=== PATIENT | female | born 1955 | race Caucasian/White ===

== ENCOUNTER 2018-12-12 09:04 | Day surgery (SDC) | payer MEDICAID, SELFPAY ==
[2018-12-07 14:37] VITALS: BMI 34.0
[2018-12-12 09:23] VITALS: BP 138/78; PULSE 60; RESP 16; TEMP 36.4; O2SAT 97; BMI 45.0
--- NOTE | 2018-12-12 10:03 | PCM.HP.BLA ---
History and Physical Date of Admission: 12/12/18 [facility] [address] [place], [place] [address] OFFICE VISIT Date of Service: 12/07/18 MR#: [id number] Acct: [id number] Name: THOM RAMÍREZ Rep #: [id number] : 1955 Provider: Cain Rush MD Age/Sex: 63/F Location: [facility] Status: Signed Intake Vital Signs 12/07/18 Height 5 ft 10 in 12/07/18 Weight: 237 lb 12/07/18 Body Mass Index (BMI) 34.0 12/07/18 Blood Pressure 130/80 H 12/07/18 Blood Pressure Location Rt brachial 12/07/18 Blood Pressure Position Sitting 12/07/18 Respiratory Rate 18 12/07/18 Pulse Rate 70 12/07/18 Pulse Source Monitor 12/07/18 Temperature 98.2 F 12/07/18 Temperature Source Oral 12/07/18 Pulse Ox 96 12/07/18 Oxygen Delivery Method room air Intake Visit Reasons: Ventral Hernias/Discuss C-Scope 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: No Is patient in pain?: No Allergies tetanus and diphtheria toxoids Allergy (Intermediate, Verified 12/07/18 14:39) arm swelling Inhaled Anesthetics (Halogen Based) Allergy (Unknown, Verified 12/07/18 14:40) unknown-many years ago Medications NK 12/07/18 [History Confirmed 12/07/18] Is last menstrual period known: No Post menopausal: Yes Patient : No PFSH Medical History Abdominal pain (Acute) Asthma (Acute) Ventral hernia (Acute) Surgical History History of laparoscopic cholecystectomy (Acute) History of total abdominal hysterectomy (Acute) Family History Mother Cancer Lung Heart disease Thyroid disorder Father Diabetes Heart disease Social History Smoking Status: Never smoker alcohol intake: never substance use type: does not use HPI HPI HPI: THOM RAMÍREZ, is a 63 F who presents to the office today for HPI HPI Surgical H&P: Yes HPI: THOM RAMÍREZ, is a 63 F who presents to the office today for evaluation of ventral hernias as well as the need for a colonoscopy. It has been over 10 years since her last colonoscopy and she reports that she had a polyp that they removed but no recommendations for earlier colonoscopies were made. She has been having discomfort in her abdomen mostly in the midline a recent CAT scan completed it [facility] in [place] make notes of ventral hernias in the midline. The discomfort is primarily with movement she has had no nausea or vomiting or incarcerating symptoms. She has frequent CT scans of her abdomen secondary to her having endometrial cancer. And at the present time her disease seems to be in remission. However in reviewing her oncology notes they make note that the CAT scans show that the hernias themselves have increased in size. ROS General General: No weight change, appetite, fatigue, colon cancer, breast cancer or weakness HEENT HEENT: No difficulty swallowing, eye injury, eye surgery, swollen glands or hoarseness Endo Endocrine: No thyroid disease, diabetes mellitus, thyroid cancer, Hair loss, heat intolerance or cold intolerance Skin Skin: No rash or changing moles Breast Breast: No left breast lump, right breast lump, nipple discharge, breast pain, abnormal mammogram, abnormal US or breast enlargement Musc Musculoskeletal: No back problems, arthritis, rheumatoid arthritis, gout or joint pain Cardio Cardiovascular: Yes murmur; no pacemaker, heart disease, atrial fibrillation, high blood pressure, heart attack, heart stent, palpitations, shortness of breat with exertion or chest pain Psych Psychiatric: No depression, anxiety or hearing voices Resp Respiratory: No shortness of breath, No sleep apnea, No cough, No COPD, Yes asthma, No emphysema, No wheezing Gastro Gastrointestinal: Yes abdominal pain, No nausea or vomiting, No diarrhea, No constipation, No blood in stool, No acid reflux, No hemorrhoids, No ulcers, No gallbladder problem, No black,tarry stools Freddie Hematologic: No blood thinners, No blood disorders, No bleeding, No anemia, No blood clots Neuro Neurologic: No system reviewed and no additional complaints, except as docu, No as per HPI, No abnormal walking, No abnormal hearing, No abnormal movements, No abnormal speech, No behavioral changes, No burning sensations, No confusion, No seizure-like activity, No unsteadiness, No dizziness, No localized weakness, No frequent falls, No headache(s), No lack of coordination, No loss of vision, No memory loss, No numbness, No other visual disturbances, No radiating pain, No restless legs, No sensory deficit, No fainting, No tingling, No tremor(s), No weakness, No other Exam Const General: no acute distress, well developed, well hydrated Orientation: oriented to person, oriented to place, oriented to time [facility] Head: normocephalic, atraumatic Ears: external ears normal Mouth: moist mucous membranes Eyes Sclera: sclerae normal Pupils: normal by confrontation Neck Neck: no lymphadenopathy noted Neck mass: No Thyroid: thyroid normal, symmetrical Chest Chest palpation & inspection: normal inspection of the chest Breast Palpation: No nipple discharge Resp Effort & Inspection: normal respiratory effort Auscultation: clear to auscultation bilaterally Percussion: percussion normal Cardio Rate: regular rate Rhythm: regular rhythm Heart Sounds: murmur GI Palpation: soft, no hepatosplenomegaly, no masses, tender Rectal Exam: other Other: A Hernia in the midline is palpable On exam. Rectal exam deferred. Extrem General: normal to inspection, no clubbing, cyanosis or edema Assessment & Plan Problems 1. Incisional hernia, without obstruction or gangrene K43.2; K43.91 2. Personal history of colonic polyps Z86.010 Plan I have discussed the above with the patient. I have offered the patient colonoscopy for evaluation. I have explained the risks/benefits of the procedure and described the procedure. I have discussed the risks with the patient, including but not limited to: infection, bleeding, perforation of the GI tract requiring emergency surgery, inability to complete the procedure, injury to any internal organs, complications of anesthesia, etc. - the patient understands and agrees to proceed. I have answered all the patient's questions to the patient's satisfaction and the patient has no further questions. The patient has been given instructions for the colon cleansing preparation. I will see her back once the colonoscopy is completed and we will re-discussed the possibility of performing an incisional hernia repair on her. Orders Orders: Colonoscopy 12/07/18 Coding Level of Care Code Off vis,new,level 3 Diagnoses Incisional hernia, without obstruction or gangrene K43.2; K43.91 ??Obstruction and gangrene presence: without obstruction or gangrene Personal history of colonic polyps Z86.010 12/08/18 1233 <Electronically signed by Cain Rush MD> Date Cain Rush MD Cosigner Signature: Date (if applicable) CC: Shae Paula, DO ~ I have re-examined the patient. There are no clinical changes since date of exam.
[2018-12-12 10:32] VITALS: BP 130/87; BP 138/78; PULSE 66; RESP 16; TEMP 36.7; O2SAT 97
--- NOTE | 2018-12-12 10:34 | OP.ENDO_ITS ---
Patient Name: Adeola Farmer Procedure Date: 12/12/2018 10:07 AM Date of : 1955 Age: 63 Procedure: Colonoscopy Indications: High risk colon cancer surveillance: Personal history of colonic polyps Providers: Cain Rush MD Referring MD: Cain Rush MD Medicines: See the Anesthesia note for documentation of the administered medications Patient Profile: This is a 63 year old female. Refer to note in patient chart for documentation of history and physical. Last Colonoscopy: more than 10 years ago. Complications: No immediate complications. Procedure: Pre-Anesthesia Assessment: - Prior to the procedure, a History and Physical was performed, and patient medications and allergies were reviewed. The patient's tolerance of previous anesthesia was also reviewed. The risks and benefits of the procedure and the sedation options and risks were discussed with the patient. All questions were answered, and informed consent was obtained. Prior Anticoagulants: The patient has taken no previous anticoagulant or antiplatelet agents. ASA Grade Assessment: II - A patient with mild systemic disease. After reviewing the risks and benefits, the patient was deemed in satisfactory condition to undergo the procedure. After I obtained informed consent, the scope was passed under direct vision. Throughout the procedure, the patient's blood pressure, pulse, and oxygen saturations were monitored continuously. The colonoscope was introduced through the anus and advanced to the cecum, identified by appendiceal orifice and ileocecal valve. The colonoscopy was performed without difficulty. The patient tolerated the procedure well. The quality of the bowel preparation was good. Scope In: 10:14:12 AM Scope Withdrawal Time 0 hours 6 minutes 8 seconds Scope Out: 10:28:12 AM Total Procedure Duration Time 0 hours 14 minutes 0 seconds Findings: A few small-mouthed diverticula were found in the sigmoid colon. No biopsies or other specimens were collected for this exam. Non-bleeding internal hemorrhoids were found during retroflexion. The hemorrhoids were mild and small. No biopsies or other specimens were collected for this exam. The exam was otherwise without abnormality. Impression: - Diverticulosis in the sigmoid colon. No specimens collected. - Non-bleeding internal hemorrhoids. No specimens collected. - The examination was otherwise normal. Recommendation: - Discharge patient to home. - Resume previous diet. - Continue present medications. - Repeat colonoscopy in 10 years for screening purposes. - Return to my office in 1 week. Procedure Code(s): --- Professional --- 18737, Colonoscopy, flexible; diagnostic, including collection of specimen(s) by brushing or washing, when performed (separate procedure) Diagnosis Code(s): --- Professional --- Z86.010, Personal history of colonic polyps K64.8, Other hemorrhoids K57.30, Diverticulosis of large intestine without perforation or abscess without bleeding CPT copyright 2017 [employer]. All rights reserved. The codes documented in this report are preliminary and upon rural sociologist review may be revised to meet current compliance requirements. MD Cain Mesa MD 12/12/2018 10:34:23 AM This report has been signed electronically. Number of Addenda: 0 Note Initiated On: 12/12/2018 10:07 AM
[2018-12-12 10:35] VITALS: BP 110/79; BP 138/78; PULSE 66; RESP 16; O2SAT 95
[2018-12-12 10:40] VITALS: BP 119/108; BP 138/78; PULSE 62; RESP 16; O2SAT 95
[2018-12-12 10:45] VITALS: BP 124/79; BP 138/78; PULSE 80; RESP 16; TEMP 36.7; O2SAT 97
[2018-12-12 10:52] VITALS: BP 138/78
== END 2018-12-12 11:31 | disposition home or self-care (01) ==
LOC: EN 09:05 → AC 09:16
PROVIDERS: Referring Provider Surgery; Visit Provider Surgery
PROC: 0DJD8ZZ Inspection of Lower Intestinal Tract, Via Natural or Artificial Opening Endoscopic (ICD-10-PCS; CPT 45378; principal; 2018-12-12 09:55)
DX: Z86.010 Personal history of colon polyps (principal); K57.30 Diverticulosis of large intestine without perforation or abscess without bleeding; K64.8 Other hemorrhoids; K43.2 Incisional hernia without obstruction or gangrene; J45.909 Unspecified asthma, uncomplicated; K76.0 Fatty (change of) liver, not elsewhere classified; E06.9 Thyroiditis, unspecified; N28.1 Cyst of kidney, acquired; Z78.0 Asymptomatic menopausal state; Z85.42 Personal history of malignant neoplasm of other parts of uterus; Z92.21 Personal history of antineoplastic chemotherapy; Z92.3 Personal history of irradiation; Z90.49 Acquired absence of other specified parts of digestive tract
CPT/HCPCS: 45378; J7120; A4216; J1610

== ENCOUNTER 2019-01-12 05:55 | Day surgery (SDC) | payer MEDICAID, SELFPAY ==
--- NOTE | 2018-12-08 12:31 | HP_ITS ---
Intake Vital Signs 12/07/18 Height 5 ft 10 in 12/07/18 Weight: 237 lb 12/07/18 Body Mass Index (BMI) 34.0 12/07/18 Blood Pressure 130/80 H 12/07/18 Blood Pressure Location Rt brachial 12/07/18 Blood Pressure Position Sitting 12/07/18 Respiratory Rate 18 12/07/18 Pulse Rate 70 12/07/18 Pulse Source Monitor 12/07/18 Temperature 98.2 F 12/07/18 Temperature Source Oral 12/07/18 Pulse Ox 96 12/07/18 Oxygen Delivery Method room air Intake Visit Reasons: Ventral Hernias/Discuss C-Scope Triage Clinician Required: No Is patient in pain?: No Allergies tetanus and diphtheria toxoids Allergy (Intermediate, Verified 12/07/18 14:39) arm swelling Inhaled Anesthetics (Halogen Based) Allergy (Unknown, Verified 12/07/18 14:40) unknown-many years ago Medications NK 12/07/18 [History Confirmed 12/07/18] Is last menstrual period known: No Post menopausal: Yes Patient : No PFSH Medical History Abdominal pain (Acute) Asthma (Acute) Ventral hernia (Acute) Surgical History History of laparoscopic cholecystectomy (Acute) History of total abdominal hysterectomy (Acute) Family History Mother Cancer Lung Heart disease Thyroid disorder Father Diabetes Heart disease Social History Smoking Status: Never smoker alcohol intake: never substance use type: does not use HPI HPI HPI: THOM RAMÍREZ, is a 63 F who presents to the office today for HPI HPI Surgical H&P: Yes HPI: THOM RAMÍREZ, is a 63 F who presents to the office today for evaluation of ventral hernias as well as the need for a colonoscopy. It has been over 10 years since her last colonoscopy and she reports that she had a polyp that they removed but no recommendations for earlier colonoscopies were made. She has been having discomfort in her abdomen mostly in the midline a recent CAT scan completed it [facility] in [place] make notes of ventral hernias in the midline. The discomfort is primarily with movement she has had no nausea or vomiting or incarcerating symptoms. She has frequent CT scans of her abdomen secondary to her having endometrial cancer. And at the present time her disease seems to be in remission. However in reviewing her oncology notes they make note that the CAT scans show that the hernias themselves have increased in size. ROS General General: No weight change, appetite, fatigue, colon cancer, breast cancer or weakness HEENT HEENT: No difficulty swallowing, eye injury, eye surgery, swollen glands or hoarseness Endo Endocrine: No thyroid disease, diabetes mellitus, thyroid cancer, Hair loss, heat intolerance or cold intolerance Skin Skin: No rash or changing moles Breast Breast: No left breast lump, right breast lump, nipple discharge, breast pain, abnormal mammogram, abnormal US or breast enlargement Musc Musculoskeletal: No back problems, arthritis, rheumatoid arthritis, gout or joint pain Cardio Cardiovascular: Yes murmur; no pacemaker, heart disease, atrial fibrillation, high blood pressure, heart attack, heart stent, palpitations, shortness of breat with exertion or chest pain Psych Psychiatric: No depression, anxiety or hearing voices Resp Respiratory: No shortness of breath, No sleep apnea, No cough, No COPD, Yes asthma, No emphysema, No wheezing Gastro Gastrointestinal: Yes abdominal pain, No nausea or vomiting, No diarrhea, No constipation, No blood in stool, No acid reflux, No hemorrhoids, No ulcers, No gallbladder problem, No black,tarry stools Freddie Hematologic: No blood thinners, No blood disorders, No bleeding, No anemia, No blood clots Neuro Neurologic: No system reviewed and no additional complaints, except as docu, No as per HPI, No abnormal walking, No abnormal hearing, No abnormal movements, No abnormal speech, No behavioral changes, No burning sensations, No confusion, No seizure-like activity, No unsteadiness, No dizziness, No localized weakness, No frequent falls, No headache(s), No lack of coordination, No loss of vision, No memory loss, No numbness, No other visual disturbances, No radiating pain, No restless legs, No sensory deficit, No fainting, No tingling, No tremor(s), No weakness, No other Exam Const General: no acute distress, well developed, well hydrated Orientation: oriented to person, oriented to place, oriented to time [facility] Head: normocephalic, atraumatic Ears: external ears normal Mouth: moist mucous membranes Eyes Sclera: sclerae normal Pupils: normal by confrontation Neck Neck: no lymphadenopathy noted Neck mass: No Thyroid: thyroid normal, symmetrical Chest Chest palpation & inspection: normal inspection of the chest Breast Palpation: No nipple discharge Resp Effort & Inspection: normal respiratory effort Auscultation: clear to auscultation bilaterally Percussion: percussion normal Cardio Rate: regular rate Rhythm: regular rhythm Heart Sounds: murmur GI Palpation: soft, no hepatosplenomegaly, no masses, tender Rectal Exam: other Other: A Hernia in the midline is palpable On exam. Rectal exam deferred. Extrem General: normal to inspection, no clubbing, cyanosis or edema Assessment & Plan Problems 1. Incisional hernia, without obstruction or gangrene K43.2; K43.91 2. Personal history of colonic polyps Z86.010 Plan I have discussed the above with the patient. I have offered the patient colonoscopy for evaluation. I have explained the risks/benefits of the procedure and described the procedure. I have discussed the risks with the patient, including but not limited to: infection, bleeding, perforation of the GI tract requiring emergency surgery, inability to complete the procedure, injury to any internal organs, complications of anesthesia, etc. - the patient understands and agrees to proceed. I have answered all the patient's questions to the patient's satisfaction and the patient has no further questions. The patient has been given instructions for the colon cleansing preparation. I will see her back once the colonoscopy is completed and we will re-discussed the possibility of performing an incisional hernia repair on her. Orders Orders: Colonoscopy 12/07/18 Coding Level of Care Code Off vis,new,level 3 Diagnoses Incisional hernia, without obstruction or gangrene K43.2; K43.91 ??Obstruction and gangrene presence: without obstruction or gangrene Personal history of colonic polyps Z86.010 12/08/18 1233 <Electronically signed by Cain flores MD> Date _ Cain Rush MD
[2018-12-22 13:23] VITALS: BMI 45.0
--- NOTE | 2019-01-10 14:43 | EKG12_ITS ---
Test Reason : PRE OP Blood Pressure : / mmHG Vent. Rate : 070 BPM Atrial Rate : 070 BPM P-R Int : 146 ms QRS Dur : 080 ms QT Int : 418 ms P-R-T Axes : -12 023 026 degrees QTc Int : 451 ms Normal sinus rhythm Low voltage QRS Borderline ECG Confirmed by LUIS ANTONIO BUITRAGO, ZOHRA ([id number]), index editor VALDEZ SIERRA ([id number]) on 01/12/2019 11:58:29 AM Referred By: Cain Rush Confirmed By:ZOHRA SALMON MD
[2019-01-10 15:44] LABS: Thyroid Stim Hormone (TSH) 3.63 uIU/mL (0.358-3.74)
[2019-01-12] VITALS (14 sets, daily range): BP systolic 122–162; BP diastolic 56–88; PULSE 63–75; RESP 16–18; TEMP 36.3–36.8; O2SAT 86–96; BMI 45.8; BMI 48.2
--- NOTE | 2019-01-12 06:57 | PCM.HP.BLA ---
History and Physical Date of Admission: 01/12/19 [facility] Medical Records Department [address] [place] [address] History and Physical MR#: [id number] Acct: [id number] Name: THOM RAMÍREZ Rep #: [id number] : 1955 63 From: Cain Rush MD PCP: Shae Paula, Status: PRE SDC Location: SDC Intake Vital Signs 12/07/18 Height 5 ft 10 in 12/07/18 Weight: 237 lb 12/07/18 Body Mass Index (BMI) 34.0 12/07/18 Blood Pressure 130/80 H 12/07/18 Blood Pressure Location Rt brachial 12/07/18 Blood Pressure Position Sitting 12/07/18 Respiratory Rate 18 12/07/18 Pulse Rate 70 12/07/18 Pulse Source Monitor 12/07/18 Temperature 98.2 F 12/07/18 Temperature Source Oral 12/07/18 Pulse Ox 96 12/07/18 Oxygen Delivery Method room air Intake Visit Reasons: Ventral Hernias/Discuss 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 Is patient in pain?: No Allergies tetanus and diphtheria toxoids Allergy (Intermediate, Verified 12/07/18 14:39) arm swelling Inhaled Anesthetics (Halogen Based) Allergy (Unknown, Verified 12/07/18 14:40) unknown-many years ago Medications NK 12/07/18 [History Confirmed 12/07/18] Is last menstrual period known: No Post menopausal: Yes Patient : No PFSH Medical History Abdominal pain (Acute) Asthma (Acute) Ventral hernia (Acute) Surgical History History of laparoscopic cholecystectomy (Acute) History of total abdominal hysterectomy (Acute) Family History Mother Cancer Lung Heart disease Thyroid disorder Father Diabetes Heart disease Social History Smoking Status: Never smoker alcohol intake: never substance use type: does not use HPI HPI HPI: THOM RAMÍREZ is a 63 F who presents to the office today for HPI HPI Surgical H&P: Yes HPI: THOM RAMÍREZ is a 63 F who presents to the office today for evaluation of ventral hernias as well as the need for a colonoscopy. It has been over 10 years since her last colonoscopy and she reports that she had a polyp that they removed but no recommendations for earlier colonoscopies were made. She has been having discomfort in her abdomen mostly in the midline a recent CAT scan completed it [facility] in [place] make notes of ventral hernias in the midline. The discomfort is primarily with movement she has had no nausea or vomiting or incarcerating symptoms. She has frequent CT scans of her abdomen secondary to her having endometrial cancer. And at the present time her disease seems to be in remission. However in reviewing her oncology notes they make note that the CAT scans show that the hernias themselves have increased in size. ROS General General: No weight change, appetite, fatigue, colon cancer, breast cancer or weakness HEENT HEENT: No difficulty swallowing, eye injury, eye surgery, swollen glands or hoarseness Endo Endocrine: No thyroid disease, diabetes mellitus, thyroid cancer, Hair loss, heat intolerance or cold intolerance Skin Skin: No rash or changing moles Breast Breast: No left breast lump, right breast lump, nipple discharge, breast pain, abnormal mammogram, abnormal US or breast enlargement Musc Musculoskeletal: No back problems, arthritis, rheumatoid arthritis, gout or joint pain Cardio Cardiovascular: Yes murmur; no pacemaker, heart disease, atrial fibrillation, high blood pressure, heart attack, heart stent, palpitations, shortness of breat with exertion or chest pain Psych Psychiatric: No depression, anxiety or hearing voices Resp Respiratory: No shortness of breath, No sleep apnea, No cough, No COPD, Yes asthma, No emphysema, No wheezing Gastro Gastrointestinal: Yes abdominal pain, No nausea or vomiting, No diarrhea, No constipation, No blood in stool, No acid reflux, No hemorrhoids, No ulcers, No gallbladder problem, No black,tarry stools Freddie Hematologic: No blood thinners, No blood disorders, No bleeding, No anemia, No blood clots Neuro Neurologic: No system reviewed and no additional complaints, except as docu, No as per HPI, No abnormal walking, No abnormal hearing, No abnormal movements, No abnormal speech, No behavioral changes, No burning sensations, No confusion, No seizure-like activity, No unsteadiness, No dizziness, No localized weakness, No frequent falls, No headache(s), No lack of coordination, No loss of vision, No memory loss, No numbness, No other visual disturbances, No radiating pain, No restless legs, No sensory deficit, No fainting, No tingling, No tremor(s), No weakness, No other Exam Const General: no acute distress, well developed, well hydrated Orientation: oriented to person, oriented to place, oriented to time [facility] Head: normocephalic, atraumatic Ears: external ears normal Mouth: moist mucous membranes Eyes Sclera: sclerae normal Pupils: normal by confrontation Neck Neck: no lymphadenopathy noted Neck mass: No Thyroid: thyroid normal, symmetrical Chest Chest palpation & inspection: normal inspection of the chest Breast Palpation: No nipple discharge Resp Effort & Inspection: normal respiratory effort Auscultation: clear to auscultation bilaterally Percussion: percussion normal Cardio Rate: regular rate Rhythm: regular rhythm Heart Sounds: murmur GI Palpation: soft, no hepatosplenomegaly, no masses, tender Rectal Exam: other Other: A Hernia in the midline is palpable On exam. Rectal exam deferred. Extrem General: normal to inspection, no clubbing, cyanosis or edema Assessment & Plan Problems 1. Incisional hernia, without obstruction or gangrene K43.2; K43.91 2. Personal history of colonic polyps Z86.010 Plan I have discussed the above with the patient. I have offered the patient colonoscopy for evaluation. I have explained the risks/benefits of the procedure and described the procedure. I have discussed the risks with the patient, including but not limited to: infection, bleeding, perforation of the GI tract requiring emergency surgery, inability to complete the procedure, injury to any internal organs, complications of anesthesia, etc. - the patient understands and agrees to proceed. I have answered all the patient's questions to the patient's satisfaction and the patient has no further questions. The patient has been given instructions for the colon cleansing preparation. I will see her back once the colonoscopy is completed and we will re-discussed the possibility of performing an incisional hernia repair on her. Coding Level of Care Code Off vis,new,level 3 Diagnoses Incisional hernia, without obstruction or gangrene K43.2; K43.91 ??Obstruction and gangrene presence: without obstruction or gangrene Personal history of colonic polyps Z86.010 I have re-examined the patient. There are no clinical changes since date of exam.
[2019-01-12] MEDS: Cefazolin 2 GM in 0.9% Normal Saline 100 ML IV (07:15)
--- NOTE | 2019-01-12 07:30 | DCINST_ITS ---
Discharge Diet: Light diet - advance as tolerated Discharge Activity: Return to Normal Activity, May Drive - when you are no longer taking narcotic pain medications., May Shower - with the bandage in place 1-2 days after surgery. Lifting Restrictions: 20 pounds for 8 weeks. Additional Activity Instructions:: Climbing stairs is fine, walking is encouraged. Sitting in bed may be uncomfortable. Sitting up using your lateral muscles (sitting up sideways) is usually more comfortable. Do not drive, work heavy equipment of sign legal documents for 24 hours. If your hernia repair was an ingunial repair, you may have scrotal swelling, an ice pack and/or athletic support can provide more comfort. Pain medications may cause nausea, you should typically eat light foods as you take your pain medications. Pain medications may also cause constipation. If you have difficulty with this, discuss with your doctor. Call your doctor if your incision/area has: Continuous Slow Oozing, Sudden Increased Bleeding, Increased Pain/ Swelling, Increased Redness, Foul Smelling Discharge Call your doctor if you observe: Fever of 101 or Higher Suture Line Care: Avoid Pulling/Pushing, Avoid Pinching/Bending Additional Dressing/Incision Instructions:: Leave the operative bandage on for 2-3 days. When you remove the bandage, leave the steri-strips on place until your follow up appointment or they fall off. Allergies/Adverse Reactions: Allergies tetanus and diphtheria toxoids Allergy (Intermediate, Verified 01/06/19 14:58) arm swelling Inhaled Anesthetics (Halogen Based) Allergy (Unknown, Verified 01/06/19 14:58) unknown-many years ago Medications to take at Discharge Oxycodone HCl/Acetaminophen [Percocet 5/325] 1 - 2 tab PO Q4H PRN PRN 6 Days #30 tab 01/12/19 The following prescriptions were given: Oxycodone HCl/Acetaminophen [Percocet 5/325] 1 - 2 tab PO Q4H PRN PRN 6 Days #30 tab PRN Reason: Pain Prescription Printed Orders to be completed after discharge: 12 Lead EKG [[facility]] Facility: [facility], Location: Cardiovascular Services Thyroid Stim Hormone (TSH) Facility: [facility], Location: Laboratory Primary Care Physician: Shae Paula DO [Primary Care Provider] - Test Results: Test results from this visit will be discussed in further detail at your follow- up appointment, if applicable. Please Follow Up With: Cain Rush MD - [phone] When: Plan to have a follow up appointment in 7 days. Call to schedule.
--- NOTE | 2019-01-12 07:30 | OP.PCM_ITS ---
Problem List (1) Incisional hernia Status: Acute Qualifiers: Obstruction and gangrene presence: without obstruction or gangrene Qualified Code(s): K43.2 - Incisional hernia without obstruction or gangrene; K43.91 - Incisional hernia, without obstruction or gangrene Report of Operation Date of Procedure: 01/12/19 Pre-Operative Diagnosis: Incisional hernia without obstruction or gangrene Post-Operative Diagnosis: Same Surgery/Procedure Performed:: Incisional hernia repair with mesh Type of Anesthesia:: General Anesthesiologist: Miguel Rollins Estimated Blood Loss (mL): < 25 cc Description of Procedure: Patient was brought into the operating room. Placed in the supine position. Under excellent general endotracheal intubation the abdomen was sterilely prepped and draped in usual fashion. Previous incision was opened up and dissected all the way down to the fascial edges. She was noted to have [place] cheese defects all along her umbilical area incision was located. As a identified the fascial edge I tried to dissect the peritoneum free from the underlying fascia however this was just impossible it was so densely adherent Getting into it getting into the abdomen I finally made a decision that it was best just to make sure there were no adhesions located on the peritoneal surface of the abdominal wall and then place a large of intrarenal ST hernia patch reference #[id number] lot number [id number]. This was placed into the peritoneal cavity it laid completely flat it covered all of the [place] cheese defects that I had previously palpated. And I was quite pleased with this this is a very large piece of mesh 17.8 x 13.8 cm. I tacked this circumferentially around to the underlying peritoneum with a pro-tacker the mesh laid completely flat with the defect that I then had I then circumferentially tacked this to the underlying fascia using interrupted #1 Nurolon's. I had excellent hemostasis I did not think that there was any need to place any drains. The subcu was brought together with 2-0 Vicryl was then deep dermal stitches of 3-0 Vicryl was then a running 4-0 Monocryl Steri-Strips were applied sterile dressings were applied and the patient tolerated the procedure well. - Admit VTE Documentation VTE Present on Admission: No VTE Mechan Device Prophylaxis: SCD's VTE Pharm Prophylaxis ordered?: No Reason prophylaxis not ordered:: Treatment Not Indicated
[2019-01-12] MEDS: BUPIVACAINE LIPOSOME/PF 20 ML VIAL OPERA.SITE (07:55)
[2019-01-12] MEDS: oxyCODONE 5 MG Tablet 10 MG PO ×2 (10:16→22:20)
[2019-01-12] MEDS: Acetaminophen 325 MG Tablet 650 MG PO (10:16)
[2019-01-12 12:56] LABS: Hematocrit 41.8 % (37-47); Mean Corp Hgb Conc 33.5 g/gl (32-36); Mean Corpuscular Hgb 28.1 pg (27.0-32.0); Mean Corpuscular Volume 83.9 fL (81-99); Mean Platelet Vol. 9.4 fl (6.2-12.0); Platelet Count 159 K/mm3 (150-450); RBC Distribution Width SD 42.1 fl (35.1-43.9); Red Blood Count 4.98 M/mm3 (4.2-5.4); White Blood Count 10.6 K/mm3 (4.4-11.0)
[2019-01-12 13:00] LABS: Scan Indicated on CBC? Y/N NO
[2019-01-12] MEDS: Lactated Ringers 1,000 ML 75 ML IV ×2 (13:50→22:19)
[2019-01-12] MEDS: HYDROmorphone 1 MG/ML Syringe IV ×2 (13:50→15:50)
[2019-01-13] VITALS (8 sets, daily range): BP systolic 116–148; BP diastolic 58–79; PULSE 61–62; RESP 18–20; TEMP 36.8–37; O2SAT 85–98
[2019-01-13] MEDS: oxyCODONE 5 MG Tablet 10 MG PO ×2 (05:46→09:57)
--- NOTE | 2019-01-13 07:32 | PCM.PN.SRG ---
Patient Problems: Active and Suspected Problems (Last Reviewed 12/22/18 @ 13:52 by Cain Rush MD) Incisional hernia (Acute) Subjective: Patient is doing better this morning and tolerating a diet. Pain is well controlled. - Physical Exam General: Alert, Oriented x3 Lungs: Normal air movement Abdomen: Soft, Non Tender, Non-Distended Vital Signs Temp Pulse Resp BP Pulse Ox 98.6 F 62 20 H 148/79 H 98 01/13/19 03:08 01/13/19 03:08 01/13/19 03:08 01/13/19 03:08 01/13/19 05:47 Oxygen Flow Rate (L/min) 1 Oxygen Delivery Method Room Air Weight: 247 lb 2.211 oz Body Mass Index (BMI) 48.2 Intake and Output for Last 24 Hours 01/11/19 01/12/19 01/13/19 23:59 23:59 23:59 Intake Total 2900 / 3654 1285 / 1285 Output Total 350 / 350 400 / 400 Balance 2550 / 3304 885 / 885 Laboratory Tests Past 24 Hrs 01/12/19 12:45 WBC 10.6 RBC 4.98 Hgb 14.0 Hct 41.8 MCV 83.9 MCH 28.1 MCHC 33.5 RDW 14.0 RDW Differential 42.1 Plt Count 159 MPV 9.4 Medical Necessity - Tobacco Use Smoking Status: Never smoker Tobacco Use: Non-smoker Assessment/Plan All Active Problems (Last Reviewed 12/22/18 @ 13:52 by Cain Rush MD) Incisional hernia (Acute) Hx of colonoscopy (Acute) History of laparoscopic cholecystectomy (Acute) History of total abdominal hysterectomy (Acute) Asthma (Acute) Ventral hernia (Acute) Abdominal pain (Acute) 63-year-old female status post incisional hernia repair Patient is doing well and I will discharge her today. Carlton Callaway MD Pager: [facility] [address] [place] [address], [address] [place] [address] Office:
== END 2019-01-13 10:50 | disposition home or self-care (01) ==
LOC: SDC 05:56 → AC 05:57 → MS2 14:07
PROVIDERS: Anesthesiology; Referring Provider Surgery; Visit Provider Surgery
PROC: (CPT 49560; principal; 2019-01-12 07:00)
DX: K43.1 Incisional hernia with gangrene (principal); Z86.010 Personal history of colon polyps; J45.909 Unspecified asthma, uncomplicated
CPT/HCPCS: 00832; 49560; 49568; 36415; 84443; 85027; 93005; J7120; C1781; J2405; J3490